=== PATIENT | female | born 1955 | race Caucasian/White ===

== ENCOUNTER 2018-04-22 09:29 | Inpatient (IN) | payer MEDICAID ==
[2018-04-22] MEDS: METHYLPREDNISOLONE 125 MG INJ IV (10:31)
[2018-04-22] MEDS: ACETAMINOPHEN 500 MG TAB PO (10:32)
[2018-04-22 10:54] LABS: HEMATOCRIT 40.2 % (37.0-47.0); HEMOGLOBIN 13.5 g/dl (12.0-16.0); MEAN CORPUSCULAR HEMOGLOBIN 29.3 pg (29.0-33.0); MEAN CORPUSCULAR HGB CONC 33.6 g/dl (32.0-37.0); MEAN CORPUSCULAR VOLUME 87.2 fl (82.0-101.0); MEAN PLATELET VOLUME 10.9 fl (7.4-10.4); PLATELET COUNT 120 10^3/UL (140-415); RED BLOOD COUNT 4.61 10^6/ul (4.20-5.40); RED CELL DISTRIBUTION WIDTH 13.2 % (11.5-14.5)
[2018-04-22 10:54] LABS: WHITE BLOOD COUNT 3.6 10^3/ul (4.8-10.8)
[2018-04-22] MEDS: ALBUTEROL 0.083% (NEB) 2.5 MG/3 ML AMP NEB (10:55)
[2018-04-22] MEDS: IPRATROPIUM (NEB) 0.5 MG/2.5 ML AMP NEB (10:55)
[2018-04-22 10:56] LABS: POSITIVE DIFF @See below
[2018-04-22 10:57] LABS: ADD MAN DIFF? YES
[2018-04-22 11:17] LABS: ALANINE AMINOTRANSFERASE 74 IU/L (13-69); ALBUMIN 3.7 g/dl (3.3-4.9); ALBUMIN/GLOBULIN RATIO 1.23; ALKALINE PHOSPHATASE 75 IU/L (42-121); ANION GAP 9 (5-13); ASPARTATE AMINO TRANSFERASE 136 IU/L (15-46); BILIRUBIN,INDIRECT 0.2 mg/dl (0-1.1); BILIRUBIN,TOTAL 0.2 mg/dl (0.2-1.3); BLOOD UREA NITROGEN 4 mg/dl (7-20); CALCIUM 8.9 mg/dl (8.4-10.2); CARBON DIOXIDE 30 mmol/L (21-31); CHLORIDE 100 mmol/L (97-110); CREATININE 0.52 mg/dl (0.44-1.00); Estimated GFR > 60 mL/min (>60); GLUCOSE 130 mg/dl (70-220); POTASSIUM 4.3 mmol/L (3.5-5.1); SODIUM 139 mmol/L (135-144); TOTAL PROTEIN 6.7 g/dl (6.1-8.1)
[2018-04-22] MEDS: AZITHROMYCIN 500MG/NS (PMX) 250 ML IVPB (11:25)
[2018-04-22] MEDS: SOD CHLORIDE 0.9% 1,000 ML IV ×5 (11:25→22:56)
[2018-04-22 11:28] LABS: TROPONIN-I < 0.012 ng/ml (0.000-0.120)
[2018-04-22 12:19] LABS: ANISOCYTOSIS 1+ (0-0); BAND NEUTROPHILS #M 0.1 10^3/ul (0.0-0.6); BAND NEUTROPHILS % (M) 3 % (0-4); GIANT THROMBO% (M) 1 % (0-0); LYMPHOCYTES #M 1.2 10^3/ul (0.8-2.9); LYMPHOCYTES % (M) 35 % (15-51); MICROCYTOSIS 1+ (0-0); MONOCYTES % (M) 2 % (0-11); PLATELET ESTIMATE NORMAL; PLATELET MORPHOLOGY COMMENT @See below; REACTIVE LYMPHOCYTES% (M) 2 % (0-0); SEG NEUT #M 2.1 10^3/ul (1.6-7.5); SEGMENTED NEUTROPHILS (M) % 58 % (39-77); SMUDGE%M 8 % (0-0)
[2018-04-22] MEDS: CEFTRIAXONE 1 GM/50 ML (PMX) 50 ML IVPB (12:25)
[2018-04-22] MEDS ORDERED: IBUPROFEN 600 MG TAB PO (14:30)
[2018-04-22] MEDS ORDERED: DOCUSATE SODIUM 100 MG CAP PO (14:30)
[2018-04-22] MEDS ORDERED: BISACODYL 10 MG SUPP PR (14:30)
[2018-04-22] MEDS ORDERED: MAGNESIUM HYDROXIDE 30ML CUP PO (14:30)
[2018-04-22] MEDS ORDERED: BISACODYL (EC) 5 MG TAB PO (14:30)
[2018-04-22] MEDS ORDERED: morphine 2 MG INJ IV (14:30)
[2018-04-22] MEDS ORDERED: ONDANSETRON 4 MG INJ IV (14:30)
[2018-04-22] MEDS ORDERED: NACL 0.9% 3 ML SYG IV (14:30)
[2018-04-22] MEDS: GUAIFENESIN LA 600 MG TABSR PO ×2 (15:19→22:55)
[2018-04-22] MEDS: SODIUM CHLORIDE 0.9% 1L BAG IV (15:23)
[2018-04-22] MEDS: LORAZEPAM 0.5 MG TAB PO (20:52)
[2018-04-22] MEDS: ACETAMINOPHEN 325 MG TAB PO (20:52)
[2018-04-22] MEDS: FAMOTIDINE 20 MG TAB PO (20:52)
[2018-04-22] MEDS: ALBUTEROL 0.083% (NEB) 2.5 MG/3 ML AMP HHN (20:57)
[2018-04-22] MEDS: predniSONE 20 MG TAB PO (23:36)
[2018-04-23] MEDS: SOD CHLORIDE 0.9% 1,000 ML IV ×4 (00:47→16:12)
[2018-04-23] MEDS: ALBUTEROL 0.083% (NEB) 2.5 MG/3 ML AMP HHN ×4 (01:08→22:25)
[2018-04-23] MEDS: ENOXAPARIN 40 MG/0.4 ML SYG SC (08:34)
[2018-04-23] MEDS: FAMOTIDINE 20 MG TAB PO ×2 (08:35→20:25)
[2018-04-23] MEDS: predniSONE 20 MG TAB PO (08:35)
[2018-04-23] MEDS: GUAIFENESIN LA 600 MG TABSR PO ×2 (08:35→20:25)
[2018-04-23] MEDS ORDERED: CEFTRIAXONE 2 GM INJ IVPB (09:00)
[2018-04-23 09:06] LABS: ADD MAN DIFF? NO
[2018-04-23 09:08] LABS: BASOPHILS % 0.3 % (0.0-2.0); HEMATOCRIT 34.3 % (37.0-47.0); HEMOGLOBIN 11.6 g/dl (12.0-16.0); LYMPHOCYTES # 0.7 10^3/ul (0.8-2.9); LYMPHOCYTES % 20.9 % (15.0-51.0); MEAN CORPUSCULAR HEMOGLOBIN 29.4 pg (29.0-33.0); MEAN CORPUSCULAR HGB CONC 33.8 g/dl (32.0-37.0); MEAN CORPUSCULAR VOLUME 86.8 fl (82.0-101.0); MEAN PLATELET VOLUME 10.8 fl (7.4-10.4); MONOCYTE # 0.2 10^3/ul (0.3-0.9); MONOCYTES % 5.1 % (0.0-11.0); NEUTROPHIL # 2.6 10^3/ul (1.6-7.5); NEUTROPHILS % 73.1 % (39.0-77.0); PLATELET COUNT 117 10^3/UL (140-415); RED BLOOD COUNT 3.95 10^6/ul (4.20-5.40); RED CELL DISTRIBUTION WIDTH 13.2 % (11.5-14.5)
[2018-04-23 09:08] LABS: WHITE BLOOD COUNT 3.5 10^3/ul (4.8-10.8)
[2018-04-23 09:13] LABS: POSITIVE DIFF @See below
[2018-04-23] MEDS: CEFTRIAXONE 2 GM/NS 50 ML IVPB (09:28)
[2018-04-23] MEDS: AZITHROMYCIN 250 MG TAB PO (09:28)
[2018-04-23 09:38] LABS: ALANINE AMINOTRANSFERASE 128 IU/L (13-69); ALBUMIN/GLOBULIN RATIO 1.15; ALKALINE PHOSPHATASE 60 IU/L (42-121); ANION GAP 3 (5-13); ASPARTATE AMINO TRANSFERASE 183 IU/L (15-46); BILIRUBIN,INDIRECT 0.1 mg/dl (0-1.1); BILIRUBIN,TOTAL 0.1 mg/dl (0.2-1.3); BLOOD UREA NITROGEN 6 mg/dl (7-20); CALCIUM 8.4 mg/dl (8.4-10.2); CARBON DIOXIDE 26 mmol/L (21-31); CHLORIDE 109 mmol/L (97-110); Estimated GFR > 60 mL/min (>60); GLUCOSE 171 mg/dl (70-220); MAGNESIUM 1.9 mg/dl (1.7-2.5); PHOSPHORUS 2.5 mg/dl (2.5-4.9); POTASSIUM 3.7 mmol/L (3.5-5.1); SODIUM 138 mmol/L (135-144); TOTAL PROTEIN 5.6 g/dl (6.1-8.1)
[2018-04-23 09:45] LABS: HEMOGLOBIN A1C 6.2 % (0-5.9)
[2018-04-23 09:46] LABS: TROPONIN-I < 0.012 ng/ml (0.000-0.120)
[2018-04-23 10:06] LABS: BAND NEUTROPHILS #M 0.2 10^3/ul (0.0-0.6); BAND NEUTROPHILS % (M) 7 % (0-4); GIANT THROMBO% (M) 1 % (0-0); LYMPHOCYTES #M 0.4 10^3/ul (0.8-2.9); LYMPHOCYTES % (M) 12 % (15-51); MONOCYTES % (M) 1 % (0-11); PLATELET ESTIMATE DECREASED; POIKILOCYTOSIS 1+ (0-0); POLYCHROMASIA 1+ (0-0); REACTIVE LYMPHOCYTES% (M) 2 % (0-0); SEG NEUT #M 2.7 10^3/ul (1.6-7.5); SEGMENTED NEUTROPHILS (M) % 78 % (39-77); SMUDGE%M 10 % (0-0)
[2018-04-23 10:22] LABS: THYROID STIMULATING HORMONE 0.199 MIU/L (0.465-4.680)
[2018-04-23] MEDS: HYDROCODONE/APAP (5/325) TAB PO (14:46)
[2018-04-23] MEDS: LORAZEPAM 0.5 MG TAB PO (20:25)
[2018-04-23] MEDS: GUAIFENESIN/DM 5ML CUP PO (20:25)
[2018-04-24 07:23] LABS: ADD MAN DIFF? NO
[2018-04-24 07:27] LABS: BASOPHILS % 0.2 % (0.0-2.0); HEMATOCRIT 33.1 % (37.0-47.0); HEMOGLOBIN 10.9 g/dl (12.0-16.0); LYMPHOCYTES # 1.7 10^3/ul (0.8-2.9); LYMPHOCYTES % 16.4 % (15.0-51.0); MEAN CORPUSCULAR HEMOGLOBIN 28.9 pg (29.0-33.0); MEAN CORPUSCULAR HGB CONC 32.9 g/dl (32.0-37.0); MEAN CORPUSCULAR VOLUME 87.8 fl (82.0-101.0); MEAN PLATELET VOLUME 10.7 fl (7.4-10.4); MONOCYTE # 0.7 10^3/ul (0.3-0.9); MONOCYTES % 6.8 % (0.0-11.0); NEUTROPHIL # 7.6 10^3/ul (1.6-7.5); NEUTROPHILS % 75.4 % (39.0-77.0); PLATELET COUNT 164 10^3/UL (140-415); RED BLOOD COUNT 3.77 10^6/ul (4.20-5.40); RED CELL DISTRIBUTION WIDTH 13.5 % (11.5-14.5)
[2018-04-24 07:27] LABS: WHITE BLOOD COUNT 10.1 10^3/ul (4.8-10.8)
[2018-04-24 07:53] LABS: ANION GAP 5 (5-13); BLOOD UREA NITROGEN 11 mg/dl (7-20); CALCIUM 8.5 mg/dl (8.4-10.2); CARBON DIOXIDE 25 mmol/L (21-31); CHLORIDE 110 mmol/L (97-110); CREATININE 0.47 mg/dl (0.44-1.00); Estimated GFR > 60 mL/min (>60); GLUCOSE 125 mg/dl (70-220); POTASSIUM 4.2 mmol/L (3.5-5.1); SODIUM 140 mmol/L (135-144)
[2018-04-24] MEDS: AZITHROMYCIN 250 MG TAB PO (08:38)
[2018-04-24] MEDS: FAMOTIDINE 20 MG TAB PO (08:38)
[2018-04-24] MEDS: predniSONE 20 MG TAB PO (08:38)
[2018-04-24] MEDS: GUAIFENESIN LA 600 MG TABSR PO (08:38)
[2018-04-24] MEDS: ENOXAPARIN 40 MG/0.4 ML SYG SC (08:41)
[2018-04-24] MEDS: CEFTRIAXONE 2 GM/NS 50 ML IVPB (10:28)
[2018-04-24] MEDS: ALBUTEROL 0.083% (NEB) 2.5 MG/3 ML AMP HHN (10:47)
[2018-04-24] MEDS ORDERED: morphine LIQ (10 MG/5 ML) CUP PO (12:00)
== END 2018-04-24 12:20 | disposition home or self-care (01) | DRG 195 ==
LOC: FTE 09:29 → 5EC 13:31
DX: J12.9 Viral pneumonia, unspecified (principal); J45.909 Unspecified asthma, uncomplicated; K29.50 Unspecified chronic gastritis without bleeding; F41.1 Generalized anxiety disorder; Z88.0 Allergy status to penicillin
CPT/HCPCS: 71045; 80048; 80053; 83036; 83605; 83735; 84100; 84443; 84484; 85025; 87040; 87400; 92610; 93005; 94640; 94664; 96365; 96366; 96368; 96375; 99285-25